=== PATIENT | female | born 1975 | race Caucasian/White ===

== ENCOUNTER 2017-04-25 18:25 | Emergency (ER) | payer MEDICAID ==
[~2017-04-25] VITALS: Ht 154.9 cm; Wt 71.7 kg
[2017-04-25 18:37] VITALS: Ht 154.9 cm; Wt 71.7 kg
[2017-04-25 20:30] VITALS: BP 138/90
== END 2017-04-25 20:30 | disposition home or self-care (01) ==
LOC: ED 18:25
DX: J06.9 Acute upper respiratory infection, unspecified (principal); I10 Essential (primary) hypertension; Z90.710 Acquired absence of both cervix and uterus